=== PATIENT | female | born 1950 | race Caucasian/White ===

== ENCOUNTER 2017-05-19 13:26 | Inpatient (IN) ==
[2017-05-19 15:07] LABS: BASO% 0.4 % (0.0-0.8); EOS# 0.04 X1000 (0.0-0.7); EOS% 0.7 % (0.0-10.0); HEMATOCRIT 37.8 % (37.0-47.0); HEMOGLOBIN 11.5 g/dL (12.0-16.0); LYMPH# 1.54 X1000 (1.2-3.4); LYMPH% 28.5 % (20.5-51.1); MANUAL DIFF NEEDED? NO; MCH 22.1 PG (27-31); MCHC 30.4 g/dL (33-37); MCV 72.6 FL (81-99); MONO# 0.69 X1000 (0.11-0.59); MONO% 12.8 % (1.7-9.3); MPV 10.5 FL (7.4-10.4); NEUT% 57.6 % (42.2-75.2); PLT 288 X1000 (130-400); RBC 5.21 XMIL (4.2-5.4)
[2017-05-19 15:37] LABS: AGAP 11; ALBUMIN 4.1 g/dL (3.5-5.0); ALKALINE PHOSPHATASE 56 U/L (32-104); BUN 13 mg/dL (8-22); CALCIUM 9.2 mg/dL (8.8-10.2); CHLORIDE 93 mmol/L (98-107); COSMO 275; GOT 19 U/L (10-30); GPT 9 U/L (10-36); POTASSIUM 3.6 mmol/L (3.5-5.1); SODIUM 134 mmol/L (136-145); TCO2 30 mmol/L (25-35); TOTAL BILIRUBIN 0.24 mg/dL (0.20-1.00); TOTAL PROTEIN 7.8 g/dL (6.3-8.3)
[2017-05-19 16:41] LABS: UR AMPHETAMINES QUAL NONE DETECTED (NONE DETECT); UR BARBITUATES QUAL NONE DETECTED (NONE DETECT); UR BENZODIAZEPIN QUAL NONE DETECTED (NONE DETECT); UR CANNABINOIDS QUAL NONE DETECTED (NONE DETECT); UR COCAINE QUAL NONE DETECTED (NONE DETECT); UR OPIATES QUAL NONE DETECTED (NONE DETECT); UR PCP QUAL NONE DETECTED (NONE DETECT)
[2017-05-19 16:42] LABS: UR METHADONE QUAL NONE DETECTED (NONE DETECT); UR OXYCODONE QUAL NONE DETECTED (NONE DETECT)
[2017-05-19] MEDS: DUONEB (A & A) INH SCH (21:27)
[2017-05-20] MEDS: CRESTOR PO SCH ×2 (01:11→22:13)
[2017-05-20] MEDS: KLOR-CON PO SCH ×2 (01:11→09:18)
[2017-05-20] MEDS: COREG PO SCH ×3 (01:13→22:12)
[2017-05-20] MEDS: PRINIVIL PO SCH ×3 (01:13→22:14)
[2017-05-20] MEDS: LAMICTAL PO SCH ×2 (01:13→09:18)
[2017-05-20] MEDS: LOVENOX SUBQ SCH ×2 (01:14→22:12)
[2017-05-20] MEDS: LANTUS SUBQ SCH ×2 (01:14→22:14)
[2017-05-20] MEDS: NICODERM PATCH TD SCH ×3 (01:16→22:20)
[2017-05-20] MEDS ORDERED: INSULIN PEN NEEDLES ONE (01:23)
[2017-05-20] MEDS: DUONEB (A & A) INH SCH ×4 (02:55→21:12)
[2017-05-20 06:56] LABS: BASO% 0.2 % (0.0-0.8); EOS# 0.04 X1000 (0.0-0.7); EOS% 0.5 % (0.0-10.0); HEMATOCRIT 34.8 % (37.0-47.0); HEMOGLOBIN 10.7 g/dL (12.0-16.0); LYMPH# 1.75 X1000 (1.2-3.4); MANUAL DIFF NEEDED? NO; MCH 22.2 PG (27-31); MCHC 30.7 g/dL (33-37); MCV 72.3 FL (81-99); MONO# 0.91 X1000 (0.11-0.59); MONO% 10.9 % (1.7-9.3); MPV 10.4 FL (7.4-10.4); NEUT% 67.4 % (42.2-75.2); PLT 261 X1000 (130-400); RBC 4.81 XMIL (4.2-5.4)
[2017-05-20 07:05] LABS: AGAP 9; ALBUMIN 3.7 g/dL (3.5-5.0); ALKALINE PHOSPHATASE 51 U/L (32-104); BUN 9 mg/dL (8-22); CALCIUM 9.4 mg/dL (8.8-10.2); CHLORIDE 95 mmol/L (98-107); COSMO 275; GOT 16 U/L (10-30); GPT 8 U/L (10-36); POTASSIUM 4.2 mmol/L (3.5-5.1); SODIUM 137 mmol/L (136-145); TCO2 33 mmol/L (25-35); TOTAL BILIRUBIN 0.29 mg/dL (0.20-1.00); TOTAL PROTEIN 7.1 g/dL (6.3-8.3)
[2017-05-20] MEDS: KLONOPIN PO SCH ×2 (09:18→18:28)
[2017-05-20] MEDS: SINGULAIR PO SCH (09:18)
[2017-05-20] MEDS: ALDACTONE PO SCH (09:18)
[2017-05-20] MEDS: EFFIENT PO SCH (16:31)
[2017-05-20] MEDS: PRILOSEC PO SCH (16:32)
[2017-05-20] MEDS: SANTYL OINT TOP SCH (18:54)
[2017-05-20] MEDS: AMARYL PO SCH (22:13)
[2017-05-20] MEDS: NEURONTIN PO SCH (22:14)
[2017-05-20] MEDS: PLETAL PO SCH (22:25)
[2017-05-21] MEDS: DUONEB (A & A) INH SCH ×4 (03:26→21:19)
[2017-05-21] MEDS: PRILOSEC PO SCH (08:06)
[2017-05-21] MEDS: ALDACTONE PO SCH (08:07)
[2017-05-21] MEDS: LAMICTAL PO SCH (08:07)
[2017-05-21] MEDS: AMARYL PO SCH ×2 (08:07→21:03)
[2017-05-21] MEDS: SINGULAIR PO SCH (08:07)
[2017-05-21] MEDS: KLOR-CON PO SCH (08:07)
[2017-05-21] MEDS: PLETAL PO SCH ×2 (08:07→21:03)
[2017-05-21] MEDS: PRINIVIL PO SCH ×2 (08:07→21:03)
[2017-05-21] MEDS: LASIX PO SCH (08:07)
[2017-05-21] MEDS: COREG PO SCH ×2 (08:07→21:03)
[2017-05-21] MEDS: KLONOPIN PO SCH ×2 (08:07→18:31)
[2017-05-21] MEDS: EFFIENT PO SCH (08:07)
[2017-05-21] MEDS: SANTYL OINT TOP SCH ×2 (08:08→21:11)
[2017-05-21] MEDS ORDERED: SALINE LOCK IV FLUID XX ONE (11:35)
[2017-05-21] MEDS: HUMULIN R SUBQ SCH ×3 (11:45→21:01)
[2017-05-21 16:25] LABS: URINE CULTURE NEEDED? NO; URINE MICRO REVIEW NEEDED? NO; URINE SOURCE CLEAN CATCH
[2017-05-21 16:33] LABS: BILIRUBIN URINE NEGATIVE (NEGATIVE); BLOOD URINE NEGATIVE (NEGATIVE); COLOR STRAW; GLUCOSE URINE 150 mg/dL (NEGATIVE); LEUKOCYTES URINE NEGATIVE (NEGATIVE); NITRITE URINE NEGATIVE (NEGATIVE); PROTEIN URINE NEGATIVE (NEGATIVE); SP GRAVITY URINE 1.006; TURBIDITY URINE CLEAR (CLEAR); UROBILINOGEN URINE NORMAL (NORMAL)
[2017-05-21 16:37] LABS: UR EPITHELIAL CELLS <10 /HPF (<10); URINE BACTERIA NEGATIVE /HPF; URINE RBC <10 /HPF (<10); URINE WBC <10 /HPF (<10)
[2017-05-21] MEDS: LANTUS SUBQ SCH (20:59)
[2017-05-21] MEDS: NICODERM PATCH TD SCH (20:59)
[2017-05-21] MEDS: CRESTOR PO SCH (21:02)
[2017-05-21] MEDS: NEURONTIN PO SCH (21:02)
[2017-05-21] MEDS: LOVENOX SUBQ SCH (23:01)
[2017-05-22] MEDS: DUONEB (A & A) INH SCH ×4 (03:26→21:59)
[2017-05-22] MEDS: HUMULIN R SUBQ SCH ×4 (06:37→20:42)
[2017-05-22] MEDS: KLONOPIN PO SCH ×4 (09:22→21:00)
[2017-05-22] MEDS: EFFIENT PO SCH (09:22)
[2017-05-22] MEDS: PRINIVIL PO SCH ×2 (09:22→20:37)
[2017-05-22] MEDS: ALDACTONE PO SCH (09:22)
[2017-05-22] MEDS: AMARYL PO SCH ×2 (09:22→20:37)
[2017-05-22] MEDS: SINGULAIR PO SCH (09:22)
[2017-05-22] MEDS: KLOR-CON PO SCH (09:22)
[2017-05-22] MEDS: PRILOSEC PO SCH (09:22)
[2017-05-22] MEDS: LAMICTAL PO SCH (09:22)
[2017-05-22] MEDS: LASIX PO SCH (09:22)
[2017-05-22] MEDS: PREDNISONE PO SCH (09:22)
[2017-05-22] MEDS: ZITHROMAX PO SCH (09:23)
[2017-05-22] MEDS: PLETAL PO SCH ×2 (09:23→20:37)
[2017-05-22] MEDS: COREG PO SCH ×2 (09:23→20:38)
[2017-05-22] MEDS: SANTYL OINT TOP SCH (17:05)
[2017-05-22] MEDS: NICODERM PATCH TD SCH (20:37)
[2017-05-22] MEDS: LANTUS SUBQ SCH (20:37)
[2017-05-22] MEDS: NEURONTIN PO SCH (20:37)
[2017-05-22] MEDS: CRESTOR PO SCH (20:38)
[2017-05-22] MEDS: LOVENOX SUBQ SCH (20:41)
[2017-05-23] MEDS: DUONEB (A & A) INH SCH ×4 (03:18→22:47)
[2017-05-23] MEDS: LOVENOX SUBQ SCH ×2 (04:05→20:34)
[2017-05-23] MEDS: HUMULIN R SUBQ SCH ×4 (06:54→20:34)
[2017-05-23] MEDS: PRINIVIL PO SCH ×2 (09:13→20:34)
[2017-05-23] MEDS: KLONOPIN PO SCH ×3 (09:14→20:25)
[2017-05-23] MEDS: COREG PO SCH ×2 (09:14→20:27)
[2017-05-23] MEDS: EFFIENT PO SCH (09:14)
[2017-05-23] MEDS: PRILOSEC PO SCH (09:14)
[2017-05-23] MEDS: PLETAL PO SCH ×2 (09:14→20:28)
[2017-05-23] MEDS: ZITHROMAX PO SCH (09:15)
[2017-05-23] MEDS: PREDNISONE PO SCH (09:15)
[2017-05-23] MEDS: LASIX PO SCH (09:15)
[2017-05-23] MEDS: SINGULAIR PO SCH (09:15)
[2017-05-23] MEDS: ALDACTONE PO SCH (09:15)
[2017-05-23] MEDS: LAMICTAL PO SCH (09:15)
[2017-05-23] MEDS: AMARYL PO SCH ×2 (09:15→20:27)
[2017-05-23] MEDS: KLOR-CON PO SCH (09:16)
[2017-05-23] MEDS: SANTYL OINT TOP SCH (12:45)
[2017-05-23 14:16] LABS: ALLEN TEST NO; BE 4.4 mmoll (-3.0-3.0); BLOOD TYPE ARTERIAL; DRAW SITE R BRACHIAL; METHB 1.4 % (0.0-1.5); O2(CT) 13.2 mL/dL (15.0-23.0); PO2(98.6) 68 mmHg (60-100); SAMPLE BLOOD; SAO2 95.8 % (95.0-100.0); pH(98.6) 7.37 (7.35-7.45)
[2017-05-23 14:18] LABS: PCO2(98.6) 53 mmHg (35-45)
[2017-05-23 14:19] LABS: MODALITY CANNULA
[2017-05-23] MEDS: NICODERM PATCH TD SCH (20:26)
[2017-05-23] MEDS: NEURONTIN PO SCH (20:27)
[2017-05-23] MEDS: CRESTOR PO SCH (20:27)
[2017-05-23] MEDS: LANTUS SUBQ SCH (20:28)
[2017-05-23] MEDS: TYGACIL 50 MG in NS 50 ML IV SCH (20:44)
[2017-05-23] MEDS: PERCOCET-5 PO PRN (20:50)
[2017-05-24] MEDS: LOVENOX SUBQ SCH ×2 (01:27→20:40)
[2017-05-24] MEDS: DUONEB (A & A) INH SCH ×4 (03:28→22:30)
[2017-05-24] MEDS ORDERED: LASIX IV ONE (06:00)
[2017-05-24] MEDS: HUMULIN R SUBQ SCH ×4 (06:50→20:30)
[2017-05-24] MEDS: TYGACIL 50 MG in NS 50 ML IV SCH ×2 (08:30→20:28)
[2017-05-24] MEDS: COREG PO SCH ×2 (08:31→20:27)
[2017-05-24] MEDS: EFFIENT PO SCH (08:31)
[2017-05-24] MEDS: ALDACTONE PO SCH (08:31)
[2017-05-24] MEDS: WELLBUTRIN SR PO SCH ×2 (08:31→20:27)
[2017-05-24] MEDS: KLOR-CON PO SCH (08:32)
[2017-05-24] MEDS: PRILOSEC PO SCH (08:32)
[2017-05-24] MEDS: PRINIVIL PO SCH ×2 (08:32→20:28)
[2017-05-24] MEDS: LAMICTAL PO SCH ×2 (08:32→20:28)
[2017-05-24] MEDS: AMARYL PO SCH ×2 (08:32→20:28)
[2017-05-24] MEDS: PLETAL PO SCH ×2 (08:32→20:28)
[2017-05-24] MEDS: LASIX PO SCH (08:32)
[2017-05-24] MEDS: PREDNISONE PO SCH (08:32)
[2017-05-24] MEDS: ZITHROMAX PO SCH (08:32)
[2017-05-24] MEDS: KLONOPIN PO SCH ×3 (08:32→20:27)
[2017-05-24] MEDS: SINGULAIR PO SCH (08:32)
[2017-05-24 11:51] LABS: BASO% 0.3 % (0.0-0.8); EOS# 0.06 X1000 (0.0-0.7); EOS% 0.7 % (0.0-10.0); HEMATOCRIT 35.6 % (37.0-47.0); HEMOGLOBIN 10.7 g/dL (12.0-16.0); LYMPH% 14.1 % (20.5-51.1); MANUAL DIFF NEEDED? NO; MCH 22.2 PG (27-31); MCHC 30.1 g/dL (33-37); MCV 73.7 FL (81-99); MONO# 0.56 X1000 (0.11-0.59); MONO% 6.1 % (1.7-9.3); MPV 10.6 FL (7.4-10.4); NEUT% 78.8 % (42.2-75.2); PLT 319 X1000 (130-400); RBC 4.83 XMIL (4.2-5.4)
[2017-05-24 12:08] LABS: ALBUMIN 3.8 g/dL (3.5-5.0); MAGNESIUM 1.9 mg/dL (1.5-2.7); POTASSIUM 4.6 mmol/L (3.5-5.1); TOTAL BILIRUBIN 0.23 mg/dL (0.20-1.00); TOTAL PROTEIN 7.5 g/dL (6.3-8.3)
[2017-05-24] MEDS: SANTYL OINT TOP SCH (13:11)
[2017-05-24] MEDS ORDERED: INSULIN PEN NEEDLES ONE (16:13)
[2017-05-24] MEDS: NEURONTIN PO SCH (20:27)
[2017-05-24] MEDS: NICODERM PATCH TD SCH (20:28)
[2017-05-24] MEDS: PERCOCET-5 PO PRN (20:28)
[2017-05-24] MEDS: CRESTOR PO SCH (20:31)
[2017-05-24] MEDS: LANTUS SUBQ SCH (20:31)
[2017-05-25] MEDS: LOVENOX SUBQ SCH ×2 (00:14→23:57)
[2017-05-25] MEDS: DUONEB (A & A) INH SCH ×4 (03:05→22:05)
[2017-05-25] MEDS: HUMULIN R SUBQ SCH ×5 (06:03→21:13)
[2017-05-25] MEDS ORDERED: D50W SYRINGE IV ONE (06:39)
[2017-05-25] MEDS: TYGACIL 50 MG in NS 50 ML IV SCH ×2 (08:47→20:51)
[2017-05-25] MEDS: PLETAL PO SCH ×2 (08:48→20:52)
[2017-05-25] MEDS: AMARYL PO SCH (08:48)
[2017-05-25] MEDS: PREDNISONE PO SCH (08:48)
[2017-05-25] MEDS: KLONOPIN PO SCH ×3 (08:48→17:49)
[2017-05-25] MEDS: WELLBUTRIN SR PO SCH ×2 (08:48→20:53)
[2017-05-25] MEDS: COREG PO SCH ×2 (08:48→20:52)
[2017-05-25] MEDS: ZITHROMAX PO SCH (08:48)
[2017-05-25] MEDS: LAMICTAL PO SCH ×2 (08:48→20:52)
[2017-05-25] MEDS: EFFIENT PO SCH (08:48)
[2017-05-25] MEDS: PRILOSEC PO SCH (08:48)
[2017-05-25] MEDS: SINGULAIR PO SCH (08:48)
[2017-05-25] MEDS: ALDACTONE PO SCH (08:48)
[2017-05-25] MEDS: PRINIVIL PO SCH ×2 (08:48→20:52)
[2017-05-25] MEDS: LASIX PO SCH (08:49)
[2017-05-25] MEDS: KLOR-CON PO SCH (08:49)
[2017-05-25] MEDS: SANTYL OINT TOP SCH (08:49)
[2017-05-25] MEDS: LANTUS SUBQ SCH (20:52)
[2017-05-25] MEDS: NEURONTIN PO SCH (20:52)
[2017-05-25] MEDS: CRESTOR PO SCH (20:52)
[2017-05-25] MEDS: NICODERM PATCH TD SCH (20:53)
[2017-05-25] MEDS: PERCOCET-5 PO PRN (23:55)
[2017-05-26] MEDS: DUONEB (A & A) INH SCH ×3 (03:15→16:07)
[2017-05-26] MEDS: HUMULIN R SUBQ SCH ×3 (06:03→16:10)
[2017-05-26 08:23] VITALS: BP 128/59
[2017-05-26] MEDS: PRILOSEC PO SCH (08:29)
[2017-05-26] MEDS: PLETAL PO SCH (08:29)
[2017-05-26] MEDS: KLONOPIN PO SCH ×2 (08:29→14:12)
[2017-05-26] MEDS: TYGACIL 50 MG in NS 50 ML IV SCH (08:29)
[2017-05-26] MEDS: WELLBUTRIN SR PO SCH (08:29)
[2017-05-26] MEDS: COREG PO SCH (08:29)
[2017-05-26] MEDS: PREDNISONE PO SCH (08:30)
[2017-05-26] MEDS: LAMICTAL PO SCH (08:30)
[2017-05-26] MEDS: LASIX PO SCH (08:30)
[2017-05-26] MEDS: AMARYL PO SCH (08:30)
[2017-05-26] MEDS: SINGULAIR PO SCH (08:30)
[2017-05-26] MEDS: EFFIENT PO SCH (08:30)
[2017-05-26] MEDS: KLOR-CON PO SCH (08:30)
[2017-05-26] MEDS: ALDACTONE PO SCH (08:30)
[2017-05-26] MEDS: PRINIVIL PO SCH (08:30)
[2017-05-26] MEDS: SANTYL OINT TOP SCH (08:31)
== END 2017-05-26 16:56 ==
LOC: ED 13:26 → 3N 20:11
PROVIDERS: ADMIT Internal Medicine; ATTEND Internal Medicine